=== PATIENT | male | born 1960 | race Caucasian/White ===

== ENCOUNTER 2019-10-07 08:41 | Emergency (ER) | payer OTHER ==
[~2019-10-07] VITALS: Ht 170.2 cm; Wt 95.3 kg
[~2019-10-07 08:41] MED LIST: COZAAR50 MG; GLUMETZA1000 MG PO; PERCOCET 5/3251 TAB PO; SURFAK240 M1 PO
[2019-10-07] MEDS ORDERED: CHILDREN'S ASPI81 MG PO (09:10)
== END 2019-10-07 14:52 | disposition home or self-care (01) ==
LOC: ER 08:41
DX: N20.0 Calculus of kidney (principal); N39.0 Urinary tract infection, site not specified